=== PATIENT | female | born 1990 | race American Indian/Alaskan Native ===

== ENCOUNTER 2017-09-29 11:28 | Day surgery (SDC) | payer MEDICAID ==
--- NOTE | 2017-09-29 09:54 | Short Stay Summary ---
Short Stay Documentation Date of service: 09/29/17 Narrative H&P: 27y/o with undesired fertility. She has been counseled on other contraceptive options. She has elected for permanent sterilization. - History Principal diagnosis: Undesired fertility Past Medical History: No medical history Past Surgical History: No surgical history Social history: - Allergies and Medications Current Medications: Allergies No Known Allergies Allergy (Unverified 09/25/17 11:04) Home Medications Medication Instructions Recorded Confirmed Last Taken Type No Known Home Medications [No 09/25/17 09/25/17 Unknown History Reported Home Medications] - Physical exam General appearance: no acute distress Integumentary: no rash HEENT: Atraumatic Lungs: Clear to auscultation Breasts: deferred Heart: Regular rate Gastrointestinal: normal Female Genitourinary: deferred Rectal Exam: deferred - Brief post op/procedure progress note Date of procedure: 09/29/17 Pre-op diagnosis: undesired fertility Post-op diagnosis: same Procedure: Laparoscopic bilateral tubal ligation with Filshie clips Anesthesia: RENETTAA Surgeon: RAY RAMÍREZ Estimated blood loss: none Pathology: none Condition: stable - Hospital course Hospital course: The patient was admitted the day of surgery and underwent a bilateral tubal ligation. Please see operative note for details of surgery. Her postoperative course was uneventful. - Disposition Condition at discharge: Good Disposition: [id number] TO HOME OR SELFCARE Short Stay Discharge Plan Activity: other (pelvic rest for 1 week) Diet: regular Additional Instructions: PUMP AND DISCARD BREAST X24 HOURS. Follow-up is not required Follow-up as needed Prescriptions: Ibuprofen [Motrin] 800 mg PO Q8HR PRN #60 tablet PRN Reason: Pain oxyCODONE /ACETAMINOPHEN [Percocet 5/325] 1 tab PO Q6HR PRN #30 tablet PRN Reason: Pain
[2017-09-29] MEDS ORDERED: NACL BACTERIOSTATIC INFILTRATI ONE (12:30)
[2017-09-29] MEDS ORDERED: LACTATED RINGERS 1,000 ML IV SCH (13:00)
[2017-09-29] MEDS ORDERED: VERSED IV NR (13:00)
[2017-09-29] MEDS ORDERED: XYLOCAINE MPF 2% ONE (13:25)
[2017-09-29] MEDS ORDERED: DIPRIVAN 10 MG/ML IV ONE (13:26)
[2017-09-29] MEDS ORDERED: ZEMURON IV ONE (13:27)
[2017-09-29] MEDS ORDERED: DILAUDID ONE (13:28)
[2017-09-29] MEDS ORDERED: ZOFRAN ONE (13:48)
[2017-09-29] MEDS ORDERED: DECADRON ONE (13:49)
[2017-09-29] MEDS ORDERED: TORADOL ONE (13:53)
[2017-09-29] MEDS ORDERED: ROBINUL ONE (13:54)
[2017-09-29] MEDS ORDERED: NEOSTIGMINE ONE (13:54)
[2017-09-29] MEDS ORDERED: MARCAINE 0.25% INFILTRATI ONE ×2 (14:04→14:11)
[2017-09-29] MEDS ORDERED: NACL 0.9% IR ONE (14:11)
--- NOTE | 2017-09-29 14:17 | Operative Report ---
Operative Report Operative Report: Date of surgery: 09/29/2017 Preoperative diagnosis: Unwanted fertility Postoperative diagnosis: Same as above Procedure: Laparoscopic bilateral tubal ligation with Filshie clips Surgeon: Ronda Pool M.D. Anesthesia: General endotracheal anesthesia Estimated blood loss: None Findings: Normal uterus tubes and ovaries bilaterally Indication: 27-year-old 003 with undesired fertility Procedure: The patient was taken to the operating room and given general endotracheal anesthesia without complication. The patient is prepped and draped in a normal sterile fashion. A bivalve speculum was placed in the patient's vagina and a single-tooth tenaculum was placed on the anterior lip of the cervix .A uterine acorn manipulator was placed, and the bivalve speculum was then removed. Attention was then turned to the patient's abdomen where a 5 mm infraumbilical skin incision was then made. A Veress needle was placed and peritoneal entry was verified water-filled syringe. Insufflation of the peritoneal cavity was performed with CO2 gas. A 5 mm trocar was placed and the laparoscope was then inserted. The patient was then placed in Trendelenburg. A 7 mm suprapubic skin incision was then made. Under direct visualization a 7 mm trocar was then placed. General survey of the patient's abdomen revealed normal uterus tubes and ovaries bilaterally. The fallopian tube was then followed out to the fimbriated end. A Filshie clip was placed, on the ampullary portion of the tube. This was performed on the contralateral side as well. The 7 mm trocar was then removed. The pneumoperitoneum was then released. The 5 mm trocar laparoscope was then removed. The skin incisions were then closed with 4-0 Monocryl. The incisions were injected with quarter percent Marcaine. Dressings were applied to the incision. The vaginal instruments were then removed atraumatically. Then successfully extubated and taken to the recovery room. All sponge laps and needle counts were correct 2.
[2017-09-29] MEDS ORDERED: DEMEROL ONE (14:46)
[2017-09-29] MEDS ORDERED: DEMEROL IV PRN (14:49)
[2017-09-29] MEDS ORDERED: DILAUDID IV PRN (14:50)
--- NOTE | 2017-09-29 14:53 | Post Anesthesia Evaluation ---
- Post Anesthesia Evaluation Patient Participated: Yes Airway Patent: Yes Stable Respiratory Function: Yes Nausea/Vomiting: No Temp > 96.8F: Yes Pain Manageable: Yes Adequeate Hydration: No
--- NOTE | 2017-09-29 14:53 | Anesthesia Consultation ---
Anesthesia Consult and Med Hx Date of service: 09/29/17 - Airway Anesthetic Teeth Evaluation: Good ROM Head & Neck: Adequate Mental/Hyoid Distance: Adequate Mallampati Class: Class I Intubation Access Assessment: Good - Pulmonary Exam CTA: Yes - Cardiac Exam Cardiac Exam: RRR - Pre-Operative Health Status ASA Pre-Surgery Classification: ASA1 Proposed Anesthetic Plan: General - Central Nervous System Hx Psychiatric Problems: No - Other Systems Hx Cancer: No
--- NOTE | 2017-09-29 14:53 | Anesthesia Day of Surgery ---
Anesthesia Day of Surgery - Day of Surgery Patient Examined: Yes Patient H&P Reviewed: Yes Patient is NPO: Yes
[2017-09-29 17:12] VITALS: BP 131/82
== END 2017-09-29 11:29 | disposition home or self-care (01) ==
LOC: OR 11:28
PROVIDERS: ATTEND Obstetrics & Gynecology
DX: Z30.2 Encounter for sterilization (principal)
CPT/HCPCS: 58671; 81025; J1100; J1170; J1885; J2175; J2250; J2405; J2704; J2710; J7120